=== PATIENT | female | born 1985 ===

== ENCOUNTER 2021-08-26 10:56 | Day surgery (SDC) | payer OTHER ==
[~2021-08-26] VITALS: Ht 165.1 cm; Wt 93.0 kg
[2021-08-26] MEDS ORDERED: NEURONTIN300 MG PO (17:25)
[2021-08-26] MEDS ORDERED: ULTRAM50 MG PO (17:25)
[2021-08-26] MEDS ORDERED: TYLENOL ARTHRI650 MG PO (17:25)
[2021-08-26] MEDS ORDERED: CEPHALEXIN500 MG PO (17:25)
[2021-08-26] MEDS ORDERED: MIRALAX17 GM PO (17:25)
== END 2021-08-26 20:50 | disposition home or self-care (01) ==
LOC: SURH 10:56 → O/R 10:56 → CIR.AMB 10:56 → EDSTATUS 11:15 → SURH 11:15 → CIR.AMB 20:50 → O/R 20:50
PROVIDERS: ATTEND Obstetrics & Gynecology Gynecologic Oncology
DX: K42.0 Umbilical hernia with obstruction, without gangrene (principal); K43.0 Incisional hernia with obstruction, without gangrene; D27.0 Benign neoplasm of right ovary; Z86.16 Personal history of COVID-19; Z88.8 Allergy status to other drugs, medicaments and biological substances; Z20.822 Contact with and (suspected) exposure to COVID-19